=== PATIENT | female | born 1995 | race American Indian/Alaskan Native ===

== ENCOUNTER 2018-04-26 00:23 | Emergency (ER) | payer SELFPAY ==
[2018-04-26] MEDS ORDERED: DUONEB *Not for PRN Use IH ONE ×2 (03:31→03:46)
[2018-04-26] MEDS ORDERED: DELTASONE PO ONE (04:51)
--- NOTE | 2018-04-26 05:12 | Emergency Department Report ---
Upper Respiratory HPI - HPI Chief Complaint: Adult Asthma Stated Complaint: ASTHMA Time Seen by Provider: 04/26/18 04:51 URI Symptoms: Rhinorrhea: No, Sore Throat: No, Ear Pain: No, Cough: Yes, Shortness of Breath: Yes, Sick Contacts: No, Unable to Take Fluids: No, Urine Output Abnormal: No, Listless Behavior: No Other History: Patient's 22-year-old female with history of asthma who presents for shortness of breath and wheezing states exposed to an aerosol at work and started wheezing however she is out of her albuterol and Advair inhaler symptoms are rated at 4/ 10 however were relieved with nebs given in ED - Home Meds and Allergies Home Medications: Home Medications Medication Instructions Recorded Confirmed Last Taken ALBUTEROL Inhaler 2 puff IH QID PRN 04/26/18 04/26/18 Unknown Fluticasone/Salmeterol [Advair 1 tab IH DAILY PRN 04/26/18 04/26/18 Unknown 250-50 Diskus] Previous Rx's Medication Instructions Recorded Last Taken Type ALBUTEROL Inhaler [Proair] 2 puff IH QID PRN #1 inhalation 04/26/18 Unknown Rx Fluticasone/Salmeterol [Advair 1 each IH DAILY #1 blst.w.dev 04/26/18 Unknown Rx 250-50 Diskus] predniSONE [Deltasone] 40 mg PO QDAY 5 Days #10 tab 04/26/18 Unknown Rx Allergies/Adverse Reactions: Allergies Allergy/AdvReac Type Severity Reaction Status Date / Time No Known Allergies Allergy Unverified 04/26/18 03:41 ED Review of Systems ROS: Stated complaint: ASTHMA Other details as noted in HPI Constitutional: denies: chills, fever Eyes: denies: eye pain, eye discharge, vision change ENT: denies: ear pain, throat pain Respiratory: cough, shortness of breath, wheezing Cardiovascular: denies: chest pain, palpitations, syncope Endocrine: no symptoms reported Gastrointestinal: denies: abdominal pain, nausea, vomiting, diarrhea Genitourinary: denies: urgency, dysuria, discharge Musculoskeletal: denies: back pain, joint swelling, arthralgia Skin: denies: rash, lesions Neurological: denies: headache, weakness, paresthesias Psychiatric: denies: anxiety, depression Hematological/Lymphatic: denies: easy bleeding, easy bruising ED Past Medical Hx - Past Medical History Hx Asthma: Yes - Surgical History Past Surgical History?: No - Social History Smoking Status: Never Smoker Substance Use Type: None - Medications Home Medications: Home Medications Medication Instructions Recorded Confirmed Last Taken Type ALBUTEROL Inhaler 2 puff IH QID PRN 04/26/18 04/26/18 Unknown History ALBUTEROL Inhaler [Proair] 2 puff IH QID PRN #1 inhalation 04/26/18 Unknown Rx Fluticasone/Salmeterol [Advair 1 each IH DAILY #1 blst.w.dev 04/26/18 Unknown Rx 250-50 Diskus] Fluticasone/Salmeterol [Advair 1 tab IH DAILY PRN 04/26/18 04/26/18 Unknown History 250-50 Diskus] predniSONE [Deltasone] 40 mg PO QDAY 5 Days #10 tab 04/26/18 Unknown Rx ED Bronchiolitis Physical Exam - Exam General: Vital signs noted. No distress. Alert and acting appropriately. HEENT: Yes Pharyngeal Erythema, No Conjuctival Injection, No Dry Mucous Membranes, No Rhinorrhea Ear: Neither TM Bulge, Neither TM Erythema, Neither EAC Discharge Neck: No Adenopathy, No Rigidity Lungs: Yes Clear Lung Sounds, Yes Good Air Exchange, No Wheezes, No Stridor, No Cough, No Nasal Flaring, No Retractions, No Use of Accessory Muscles Heart: Yes Regular, No Murmur Abdomen: Yes Normal Bowel Sounds, No Tenderness, No Peritoneal Signs Skin: No Rash, No Eczema Neurologic: Alert and oriented, no deficits. Musculoskeletal: Unremarkable. ED Physical Exam - General Limitations: No Limitations General appearance: alert, in no apparent distress - Head Head exam: Present: atraumatic, normocephalic - Eye Eye exam: Present: normal appearance, PERRL, EOMI Pupils: Present: normal accommodation - ENT ENT exam: Present: normal exam, normal orophraynx, mucous membranes moist, TM's normal bilaterally, normal external ear exam - Neck Neck exam: Present: normal inspection, full ROM. Absent: tenderness, lymphadenopathy, thyromegaly - Respiratory Respiratory exam: Present: wheezes. Absent: respiratory distress, rhonchi, stridor, chest wall tenderness ED Course Vital Signs 04/26/18 03:36 Temperature 98.3 F Pulse Rate 103 H Respiratory 16 Rate Blood Pressure 131/76 O2 Sat by Pulse 100 Oximetry ED Medical Decision Making - Medical Decision Making Breathing improved monitor to wheezing, patient ambulatory from the ED and back to room with increased shortness of breath denies dizziness no headache no chest pain or lightheadedness no nausea vomiting O2 sat 99% room air at this time: plan refill ProAir, and Advair, inhaler, prednisone burst, follow-up with [facility] for PCP affiliation in 2-3 days pt verbalized agreement and understanding with same pt DC'd home in stable condition at this time. Critical care attestation.: If time is entered above; I have spent that time in minutes in the direct care of this critically ill patient, excluding procedure time. ED Disposition Clinical Impression: Bronchitis Asthma Qualifiers: Asthma severity: mild Asthma persistence: intermittent Asthma complication type : with acute exacerbation Qualified Code(s): J45.21 - Mild intermittent asthma with (acute) exacerbation Disposition: DC- TO HOME OR SELFCARE Is pt being admited?: No Does the pt Need Aspirin: No Condition: Good Instructions: Chronic Bronchitis (ED), Asthma (ED) Prescriptions: ALBUTEROL Inhaler [Proair] 2 puff IH QID PRN #1 inhalation PRN Reason: Shortness Of Breath Fluticasone/Salmeterol [Advair 250-50 Diskus] 1 each IH DAILY #1 blst.w.dev predniSONE [Deltasone] 40 mg PO QDAY 5 Days #10 tab Referrals: [facility] [Outside] - 3-5 Days Forms: Work/School Release Form(ED) Time of Disposition: 05:29
[2018-04-26 06:43] VITALS: BP 128/79
== END 2018-04-26 05:28 | disposition home or self-care (01) ==
LOC: ED 00:23
DX: J45.909 Unspecified asthma, uncomplicated (principal)
CPT/HCPCS: 99283; J7512